=== PATIENT | female | born 1995 | race Caucasian/White ===

== ENCOUNTER 2016-07-28 08:50 | Emergency (ER) | payer BC ==
[~2016-07-28] VITALS: Ht 167.6 cm; Wt 85.9 kg
[~2016-07-28 08:50] MED LIST: BENTYL20 MG PO; CLARINEX5 MG PO; MIRALAX17 GM PO; MOTRIN100 MG/5 M PO; NOHOMEMEDS; OMEPRAZOLE20 MG PO; PROZAC10 MG PO; ZANTAC150 MG PO; ZOFRAN ODT4 MG PO; ZOFRAN4 MG PO
[2016-07-28 09:49] LABS: ADD MIUA? YES; BILIRUBIN NEGATIVE; BLOOD TRACE; COLOR YELLOW ((YELLOW)); GLUCOSE (STRIP) NEGATIVE; KETONES NEGATIVE; LEUKOCYTES SMALL; NITRITE NEGATIVE; PROTEIN (STRIP) NEGATIVE; SPECIFIC GRAVITY 1.021 (1.000-1.030); UROBILINOGEN 0.2 MG/DL (0.2-1.0)
[2016-07-28 10:28] LABS: BACTERIA 3+; CASTS NONE SEEN /LPF; CRYSTALS NONE SEEN; EPITHELIAL CELLS 2+; MUCUS NONE SEEN; RED BLOOD CELLS 0-5 /HPF (0-5)
[2016-07-28 12:11] VITALS: BP 111/78
[2016-07-29] MEDS ORDERED: ZITHROMAX Z-PA250 MG PO (18:15)
[2016-07-29] MEDS ORDERED: ACETAMINOPHEN-120 ML PO (18:15)
== END 2016-07-28 12:12 | disposition home or self-care (01) ==
LOC: EME 08:50
PROVIDERS: Physician Assistant
DX: J02.0 Streptococcal pharyngitis (principal); Z88.7 Allergy status to serum and vaccine; Z88.1 Allergy status to other antibiotic agents
CPT/HCPCS: 81003; 84702; 87086; 99281; 99285; J1885; J7030

== ENCOUNTER 2016-07-29 16:29 | Emergency (ER) | payer BC ==
[~2016-07-29] VITALS: Ht 167.6 cm; Wt 86.6 kg
[2016-07-29] MEDS ORDERED: ZITHROMAX Z-PA250 MG PO (18:15)
[2016-07-29] MEDS ORDERED: ACETAMINOPHEN-120 ML PO (18:15)
[2016-07-29 18:29] VITALS: BP 102/78
== END 2016-07-29 18:33 | disposition home or self-care (01) ==
LOC: EME 16:29
DX: J02.9 Acute pharyngitis, unspecified (principal)
CPT/HCPCS: 99281; 99283

== ENCOUNTER 2017-11-30 23:27 | Emergency (ER) | payer BC ==
[~2017-11-30] VITALS: Ht 165.1 cm; Wt 82.5 kg
[~2017-11-30 23:27] MED LIST changes: +ACETAMINOPHEN-120 ML PO; +ZITHROMAX Z-PA250 MG PO
[2017-11-30 23:49] LABS: HEMATOCRIT 40.3 % (36.0-46.0); HEMOGLOBIN 14.3 G/DL (11.9-15.5); MCH 29.4 PG (29.0-34.0); MCHC 35.5 G/DL (30.0-36.0); MCV 82.9 FL (83-99); PLATELET COUNT 252 K/uL (156-360); RBC DIS.WIDTH-SD 36.7 % (39-53); RED BLOOD COUNT 4.86 M/uL (3.80-5.20); WHITE BLOOD COUNT 11.7 K/uL (4.1-10.2)
[2017-11-30 23:58] LABS: ALBUMIN 4.1 g/dL (3.2-4.8); CHLORIDE 107 mEq/L (99-109); POTASSIUM 3.7 mEq/L (3.7-5.4); SODIUM 137 mEq/L (136-147)
[2017-12-01 00:01] LABS: GLUCOSE 90 mg/dL (70-99); TOTAL PROTEIN 7.4 g/dL (6.4-8.3)
[2017-12-01 00:03] LABS: TOTAL BILIRUBIN 0.3 mg/dL (0.0-1.0)
[2017-12-01 00:04] LABS: ALKALINE PHOSPHATASE 45 IU/L (3-129); CREATININE 0.6 mg/dL (0.6-1.3); GFR ESTIMATE (CALCULATED) > 59 mL/min/
[2017-12-01 00:05] LABS: UREA NITROGEN (BUN) 8 mg/dL (9-23)
[2017-12-01 00:06] LABS: AST (GOT) 21 IU/L (2-34)
[2017-12-01 00:07] LABS: ALT (GPT) 25 IU/L (3-49)
[2017-12-01 00:09] LABS: APPEARANCE SL.HAZY ((CLEAR)); BILIRUBIN NEGATIVE; BLOOD NEGATIVE; COLOR YELLOW ((YELLOW)); GLUCOSE (STRIP) NEGATIVE; KETONES NEGATIVE; LEUKOCYTES TRACE; NITRITE NEGATIVE; PROTEIN (STRIP) NEGATIVE; SPECIFIC GRAVITY 1.024 (1.000-1.030); UROBILINOGEN 0.2 MG/DL (0.2-1.0)
[2017-12-01 00:19] LABS: BACTERIA RARE /HPF; CALCIUM OXALATE CRYSTALS 3+ /HPF; EPITHELIAL CELLS 1+ /HPF; MUCUS TRACE /LPF; RED BLOOD CELLS 0-5 /HPF (0-5); UCUL ADDED? NO; WHITE BLOOD CELLS 0-5 /HPF (0-5)
[2017-12-01 00:33] LABS: QUANTITATIVE HCG 125059.8 MIU/ML
[2017-12-01 01:40] VITALS: BP 118/79
== END 2017-12-01 01:40 | disposition home or self-care (01) ==
LOC: EME 23:27
DX: O99.611 Diseases of the digestive system complicating pregnancy, first trimester (principal); K21.9 Gastro-esophageal reflux disease without esophagitis; K58.9 Irritable bowel syndrome, unspecified; F32.9 Major depressive disorder, single episode, unspecified; Z88.0 Allergy status to penicillin
CPT/HCPCS: 80053; 81003; 84702; 85027; 99281; 99284